=== PATIENT | male | born 1965 | race Caucasian/White ===

== ENCOUNTER 2024-06-02 09:06 | Emergency (ER) | payer MEDICARE ==
[~2024-06-02] VITALS: Ht 172.7 cm; Wt 74.2 kg
[2024-06-02 09:09] VITALS: TEMP 96.9
[2024-06-02] MEDS ORDERED: AMLO1TAB24 PO (10:38)
[2024-06-02] MEDS ORDERED: ATOR80TA59 PO (10:38)
[2024-06-02] MEDS ORDERED: HYDR12CA PO (10:38)
[2024-06-02] MEDS ORDERED: LISI10TA22 PO (10:38)
[2024-06-02] MEDS ORDERED: FLOM0.4C39 PO (10:38)
[2024-06-02] MEDS ORDERED: VENTAER INH (10:38)
[2024-06-02] MEDS ORDERED: CARV25TA PO (10:38)
[2024-06-02] MEDS ORDERED: HOME MED LIST COMPLETE! XX SCH (10:40)
[2024-06-02 10:45] VITALS: BP 155/101; O2SAT 98
[2024-06-02 11:17] LABS: BASO % 0.4 % (0.0-1.0); EOS # 0.2 10^3/uL (0.0-0.5); HEMOGLOBIN 14.4 g/dl (13.5-17.5); LYMPH # 2.5 10^3/uL (1.5-5.0); LYMPH % 25.3 % (24.0-44.0); MEAN CORPUSCULAR HEMOGLOBIN 31.2 pg (27.0-33.0); MEAN CORPUSCULAR HGB CONC 35.1 g/dl (32.0-36.5); MEAN CORPUSCULAR VOLUME 88.7 fl (80.0-96.0); MONO # 0.7 10^3/uL (0.0-0.8); MONO % 6.5 % (2.0-8.0); NEUTROPHILS # 6.5 10^3/uL (1.5-8.5); NEUTROPHILS % 65.4 % (36.0-66.0); PLATELET COUNT, AUTOMATED 166 10^3/uL (150-450); RED BLOOD COUNT 4.62 10^6/uL (4.30-6.10); WHITE BLOOD COUNT 9.9 10^3/uL (4.0-10.0)
[2024-06-02 11:21] VITALS: BP 149/97
[2024-06-02] MEDS: amLODIPine 5 MG TAB PO ONE (11:21)
[2024-06-02] MEDS: IBUPROFEN 600MG TAB PO ONE (11:22)
[2024-06-02 11:47] LABS: BLOOD UREA NITROGEN 11 MG/DL (9-23); CALCIUM LEVEL 9.4 MG/DL (8.5-10.1); CARBON DIOXIDE LEVEL 25 MMOL/L (20-31); CHLORIDE LEVEL 103 MMOL/L (98-107); CREATININE FOR GFR 0.53 MG/DL (0.70-1.30); GLOMERULAR FILTRATION RATE > 60.0 (>56); GLUCOSE, FASTING 365 MG/DL (60-100); POTASSIUM SERUM 4.4 MMOL/L (3.5-5.1); SODIUM LEVEL 134 MMOL/L (136-145)
== END 2024-06-02 12:24 | disposition left against medical advice (07) ==
LOC: M ED 09:06
DX: M79.604 Pain in right leg (principal); M79.605 Pain in left leg; I10 Essential (primary) hypertension; Z91.119 Patient's noncompliance with dietary regimen due to unspecified reason; E11.9 Type 2 diabetes mellitus without complications; E78.5 Hyperlipidemia, unspecified; J45.909 Unspecified asthma, uncomplicated; N40.0 Benign prostatic hyperplasia without lower urinary tract symptoms; F17.200 Nicotine dependence, unspecified, uncomplicated; Z79.52 Long term (current) use of systemic steroids; Z79.02 Long term (current) use of antithrombotics/antiplatelets; Z79.811 Long term (current) use of aromatase inhibitors; Z79.899 Other long term (current) drug therapy; Z53.9 Procedure and treatment not carried out, unspecified reason